=== PATIENT | female | born 1950 | race Caucasian/White ===

== ENCOUNTER 2018-04-26 13:16 | Emergency (ER) | payer OTHER, MEDICAID ==
[~2018-04-26] VITALS: Ht 157.5 cm; Wt 75.5 kg
[2018-04-26 13:50] VITALS: BP 175/68
[2018-04-26] MEDS ORDERED: AMLO10TA PO (14:18)
[2018-04-26] MEDS ORDERED: LISI10TA11 PO (14:18)
[2018-04-26 14:23] LABS: BASOPHILS % (AUTO) 0.6 % (0.0-2.0); EOSINOPHILS # (AUTO) 0.1 K/uL (0-0.4); EOSINOPHILS % (AUTO) 1.4 % (0.0-4.0); HEMATOCRIT 40.5 % (36-48); HEMOGLOBIN 13.5 g/dL (12.0-16.0); LYMPHOCYTES # (AUTO) 2.2 K/uL (2.5-16.5); LYMPHOCYTES % (AUTO) 28.2 % (20.5-51.1); MEAN CORPUSCULAR HEMOGLOBIN 30 pg (27-31); MEAN CORPUSCULAR HGB CONC 33 g/dL (33-37); MEAN CORPUSCULAR VOLUME 89.9 fL (80-94); MONOCYTES # (AUTO) 0.8 K/uL (0.8-1.0); MONOCYTES % (AUTO) 10.1 % (1.7-9.3); NEUTROPHILS # (AUTO) 4.6 K/uL (1.8-7.7); NEUTROPHILS % (AUTO) 59.7 % (42.2-75.2); PLATELET COUNT (AUTO) 180 K/uL (140-450); RED BLOOD CELL COUNT(AUTO) 4.51 MIL/uL (4.20-5.40); RED CELL DISTRIBUTION WIDTH 12.4 % (11.6-13.7); WHITE BLOOD COUNT (AUTO) 7.7 K/uL (4.8-10.8)
[2018-04-26] MEDS: NACL 0.9% 1,000 ML IV ONE (14:32)
[2018-04-26] MEDS: cloNIDine 0.1 MG TAB PO ONE (14:33)
[2018-04-26] MEDS: ASPIRIN 81 MG TAB.CHEW PO ONE (14:33)
[2018-04-26 14:47] LABS: PROTHROMBIN TIME 9.7 secs (10.8-13.4)
[2018-04-26 15:16] LABS: ANION GAP 14.5 (8-16); CARBON DIOXIDE 25.7 mmol/L (21-32); CREATININE 0.9 mg/dL (0.6-1.3); POTASSIUM 4.2 mmol/L (3.5-5.1); TOTAL BILIRUBIN 0.4 mg/dL (0.0-1.0)
[2018-04-26 15:17] LABS: ALBUMIN 4.2 g/dL (3.4-5.0)
[2018-04-26 16:15] VITALS: BP 138/75
== END 2018-04-26 16:15 | disposition home or self-care (01) ==
LOC: MED 13:16
DX: R53.1 Weakness (principal); E11.9 Type 2 diabetes mellitus without complications; I10 Essential (primary) hypertension; Z79.899 Other long term (current) drug therapy
CPT/HCPCS: 36415; 71045; 80053; 82948; 84484; 85025; 85610; 85730; 93005; 99284; Q0092; 96360; J7030